=== PATIENT | female | born 1985 | race Hispanic/Latino ===

== ENCOUNTER → 2021-09-12 | Outpatient (CLI) | payer BC ==
[~2021-09-12] MED LIST: GADOTERATE MEGLUMINE 10 MMOL/20 ML VIAL IV ONE
== END | disposition home or self-care (01) ==
LOC: RAH 11:21
PROVIDERS: ATTEND Ophthalmology
DX: G93.2 Benign intracranial hypertension (principal)
CPT/HCPCS: 70553; A9575